=== PATIENT | male | born 1975 | race American Indian/Alaskan Native ===

== ENCOUNTER 2017-05-16 12:56 | Emergency (ER) | payer MEDICAID, OTHER ==
[2017-05-16 13:14] VITALS: TEMP 98.2
[2017-05-16] MEDS ORDERED: Sodium Chloride 0.9% 1,000 ML IV STA (13:28)
--- NOTE | 2017-05-16 13:52 | ED PDOC ---
Arrival/HPI - History of Present Illness Time/Duration: 24 hours Symptom Onset: Gradual Symptom Course: Unchanged Quality: Fullness Severity Level: 6 Activities at Onset: Rest Context: Sitting <Loco Mcnally - Last Filed: 05/16/17 17:22> - General Historian: Patient <Eliz Vasquez - Last Filed: 05/16/17 17:43> - General Chief Complaint: Abdominal Pain Time Seen by Provider: 05/16/17 13:11 - History of Present Illness Narrative History of Present Illness (Text): 05/16/17 13:46 This is a 41 yr. old male with no significant past medical history who comes into the [facility] complaining of stomach pain since last night. The patient describes the pain as having "to pass gas". The patient reports that the pain moves from the four quadrants anteriorly to the mid back. The patient reports taking Mylanta for the discomfort last night, but denies it improving the symptoms. The patient also reports two episodes of vomiting since arriving at the [facility]. The first episode was non-bilious ,non bloody in nature and the second was composed of food and some blood tinged components. The patient reports also reports fever, chills, nausea, and diarrhea. The patient also reports lightheadedness and dizziness in relation to the new onset diarrhea. The patient denies shortness of breath, chest pain or any other complaints. (Loco Mcnally) Past Medical History - Provider Review Nursing Documentation Reviewed: Yes - Infectious Disease Hx of Infectious Diseases: None - Musculoskeletal/Rheumatological Other/Comment: left wrist surgery - Psychiatric Hx Substance Use: No - Anesthesia Hx Anesthesia: No Hx Anesthesia Reactions: No Hx Malignant Hyperthermia: No <Loco Mcnally - Last Filed: 05/16/17 17:22> Family/Social History - Physician Review Nursing Documentation Reviewed: Yes Family/Social History: No Known Family HX Smoking Status: Current Some Days Smoker Hx Alcohol Use: Yes Frequency of alcohol use: Socially Hx Substance Use: No <Loco Mcnally - Last Filed: 05/16/17 17:22> Allergies/Home Meds <Loco Mcnally - Last Filed: 05/16/17 17:22> <Eliz Vasquez - Last Filed: 05/16/17 17:43> Allergies/Adverse Reactions: Allergies No Known Allergies Allergy (Verified 05/16/17 13:13) Home Medications: Home Meds Medication Instructions Recorded Confirmed No Known Home Med 05/16/17 05/16/17 Review of Systems - Physician Review All systems were reviewed & negative as marked: Yes - Review of Systems Constitutional: Normal, Fevers. absent: Fatigue, Weight Change, Night Sweats Eyes: Normal. absent: Vision Changes, Eye Pain ENT: Sore Throat. absent: Normal, Rhinorrhea, Sinus Congestion Respiratory: Normal. absent: SOB, Sputum, Wheezing Cardiovascular: Normal. absent: Chest Pain, Edema, Syncope Gastrointestinal: Abdominal Pain, Diarrhea, Nausea, Vomiting. absent: Constipation Genitourinary Male: Normal. absent: Frequency Musculoskeletal: Normal. absent: Back Pain, Neck Pain Skin: Normal Neurological: Dizziness. absent: Headache, Focal Weakness, Gait Changes, Disequilibrium Endocrine: absent: Polyuria, Polydipsia Psychiatric: Normal <Loco Mcnally - Last Filed: 05/16/17 17:22> Physical Exam Vital Signs Reviewed: Yes Temperature: Afebrile Blood Pressure: Normal Pulse: Tachycardic Respiratory Rate: Normal Appearance: Positive for: Well-Appearing, Non-Toxic, Comfortable Pain Distress: Moderate Mental Status: Positive for: Alert and Oriented X 3 - Systems Exam Head: Present: Atraumatic, Normocephalic Pupils: Present: PERRL Extroacular Muscles: Present: EOMI. No: Gaze Palsy Conjunctiva: Present: Normal. No: Injected Mouth: Present: Moist Mucous Membranes. No: Dry Neck: Present: Normal Range of Motion. No: JVD, Lymphadenopathy Respiratory/Chest: Present: Clear to Auscultation, Good Air Exchange. No: Respiratory Distress, Accessory Muscle Use, Wheezes Cardiovascular: Present: Regular Rate and Rhythm, Normal S1, S2, Tachycardic. No: Murmurs, Bradycardic Abdomen: Present: Tenderness. No: Distention, Peritoneal Signs Back: Present: Normal Inspection Upper Extremity: Present: Normal Inspection. No: Cyanosis, Edema Lower Extremity: Present: Normal Inspection. No: Edema Neurological: Present: CN II-XII Intact, Speech Normal Skin: Present: Dry, Normal Color. No: Warm, Rashes Lymphatic: No: Cervical Adenopathy Psychiatric: Present: Alert, Oriented x 3, Normal Insight <DaliLoco - Last Filed: 05/16/17 17:22> Medical Decision Making - EKG Interpretation Interpreted by ED Physician: Yes Type: 12 lead EKG <Loco Mcnally - Last Filed: 05/16/17 17:22> <Eliz Vasquez - Last Filed: 05/16/17 17:43> ED Course and Treatment: 05/16/17 13:56 The patient came to [facility] complaining of stomach pain since last night. Lab tests were ordered including : cbc w/diff, cmp, mg, and phos. The patient was given Zofran and Toradol for nausea and pain respectively. Patient will be re-evaluated once lab results return. Patient currently tolerating the PO challenge with no complaints. Will re- evaluate afterwards. (Loco Mcnally) 05/16/17 14:08 In agreement with resident note, which includes further HPI details. Patient was seen and evaluated with resident, came up with plan and treatment together. Patient presented with vomiting and diarrhea. Abdomen was soft NT/ND. EKG shows NSR at 86bpm with normal intervals and no ST changes. WBC was mildly elevated but CT negative. On reevaluation, abdomen continues to be soft NT/ND and patient is tolerating po and requesting to go home. Repeat vitals WNL ( Eliz Vasquez) - Lab Interpretations Lab Results: 05/16/17 14:05 05/16/17 14:05 Lab Results 05/16/17 14:05: Sodium 141, Potassium 4.8, Chloride 98, Carbon Dioxide 28, Anion Gap 20, BUN 11, Creatinine 0.9, Est GFR ( Amer) > 60, Est GFR (Non- Af Amer) > 60, Random Glucose 128 H, Calcium 9.9, Phosphorus 2.0 L, Magnesium 1.7, Total Bilirubin 1.1, AST 47, ALT 58 H, Alkaline Phosphatase 86, Total Protein 8.7 H, Albumin 5.2 H, Globulin 3.5, Albumin/Globulin Ratio 1.5, Lipase 81 05/16/17 14:05: WBC 13.1 H, RBC 5.08, Hgb 16.2, Hct 46.4, MCV 91.3, MCH 31.9, MCHC 34.9, RDW 12.5, Plt Count 272, MPV 9.5, Neutrophils % (Manual) 92 H, Band Neutrophils % 3 H, Lymphocytes % (Manual) 2 L, Monocytes % (Manual) 3, Platelet Evaluation Normal - RAD Interpretation Radiology Orders: 05/16/17 13:43 ABDOMEN & PELVIS [ABD & PELVIS IV CONTRAST ONLY] [CT] Stat - Medication Orders Current Medication Orders: Discontinued Medications Famotidine (Pepcid) 20 mg IVP STAT STA Stop: 05/16/17 16:04 Last Admin: 05/16/17 16:24 Dose: 20 mg Sodium Chloride (Sodium Chloride 0.9%) 1,000 mls @ 999 mls/hr IV .Q1H1M STA Stop: 05/16/17 14:28 Last Admin: 05/16/17 13:57 Dose: 999 mls/hr Iohexol (Omnipaque 350 100 Ml) Confirm Administered Dose 350 mg .ROUTE .STK-MED ONE Stop: 05/16/17 15:29 Ketorolac Tromethamine (Toradol) 30 mg IVP STAT STA Stop: 05/16/17 13:45 Last Admin: 05/16/17 13:59 Dose: 30 mg Ondansetron HCl (Zofran Inj) 4 mg IVP STAT STA Stop: 05/16/17 13:27 Last Admin: 05/16/17 13:58 Dose: 4 mg - 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 MD/DO has examined the patient and agrees with the treatment plan. <Loco Mcnally - Last Filed: 05/16/17 17:22> - Scribe Statement The provider has reviewed the documentation as recorded by the Scribe <Eliz Vasquez - Last Filed: 05/16/17 17:43> - Scribe Statement 05/16/2017 Leigha Castellanos Provider Scribe Attestation: All medical record entries made by the Scribe were at my direction and personally dictated by me. I have reviewed the chart and agree that the record accurately reflects my personal performance of the history, physical exam, medical decision making, and the department course for this patient. I have also personally directed, reviewed, and agree with the discharge instructions and disposition. (Eliz Vasquez) Disposition/Present on Arrival - Present on Arrival Any Indicators Present on Arrival: No History of DVT/PE: No History of Uncontrolled Diabetes: No Urinary Catheter: No History of Decub. Ulcer: No History Surgical Site Infection Following: None - Disposition Have Diagnosis and Disposition been Completed?: Yes Disposition Time: 17:00 Patient Plan: Discharge <Loco Mcnally - Last Filed: 05/16/17 17:22> <Eliz Vasquez - Last Filed: 05/16/17 17:43> - Disposition Diagnosis: Abdominal pain Disposition: HOME/ ROUTINE Patient Problems: Current Active Problems Problem Status Onset Abdominal pain Acute Condition: GOOD Discharge Instructions (ExitCare): Abdominal Pain (ED) Print Language: ARMENIAN Additional Instructions: Patient is to F/U with PMD. Patient should return to [facility] if any new symptoms or ones currently present worsen. Referrals: PCP,NO [Primary Care Provider] - Follow up with primary Forms: [employer] (Georgian)
[2017-05-16 14:30] LABS: HEMOGLOBIN 16.2 g/dL (14.0-18.0); MEAN CELL VOLUME 91.3 fl (80.0-105.0); MEAN CORPUSCULAR HEMOGLOBIN 31.9 pg (25.0-35.0); MEAN CORPUSCULAR HGB CONC 34.9 g/dl (31.0-37.0); MEAN PLATELET VOLUME 9.5 fl (7.0-11.0); PLATELET COUNT 272 10^3/uL (120.0-450.0); RBC 5.08 10^6/uL (3.5-6.1); RED CELL DISTRIBUTION WIDTH 12.5 % (11.5-14.5); WHITE BLOOD COUNT 13.1 10^3/ul (4.5-11.0)
[2017-05-16 14:39] LABS: ALB/GLOB RATIO 1.5 (1.1-1.8); ALBUMIN 5.2 g/dL (3.0-4.8); ALT/SGPT 58 U/L (7-56); AST/SGOT 47 U/L (15-59); BLOOD UREA NITROGEN 11 mg/dL (7-21); CALCIUM 9.9 mg/dL (8.4-10.5); GFR AFRICAN-AMERICAN > 60; GFR NON-AFRICAN AMERICAN > 60; LIPASE 81 U/L (23-300); MAGNESIUM 1.7 mg/dL (1.7-2.2)
[2017-05-16 15:14] LABS: BAND 3 % (0-2); LYMPHOCYTE 2 % (22.0-35.0); MONOCYTE 3 % (1.0-6.0); NEUTROPHIL 92 % (50.0-70.0); PLATELET ESTIMATE NORMAL (NORMAL)
[2017-05-16] MEDS ORDERED: Iohexol 350 MG/100 ML VIAL ONE (15:28)
--- NOTE | 2017-05-16 15:52 | CT ---
PROCEDURE: CT Abdomen and Pelvis with contrast HISTORY: r/o diverticulitis COMPARISON: None. TECHNIQUE: Contrast dose: 100 cc of Omni 350 Radiation dose: Total exam DLP = 668 mGy-cm. This CT exam was performed using one or more of the following dose reduction techniques: Automated exposure control, adjustment of the mA and/or kV according to patient size, and/or use of iterative reconstruction technique. FINDINGS: LOWER THORAX: Unremarkable. LIVER: Unremarkable. No gross lesion or ductal dilatation. GALLBLADDER AND BILE DUCTS: Unremarkable. PANCREAS: Unremarkable. No gross lesion or ductal dilatation. SPLEEN: Unremarkable. ADRENALS: Unremarkable. No mass. KIDNEYS AND URETERS: Unremarkable. No hydronephrosis. No solid mass. VASCULATURE: Unremarkable. No aortic aneurysm. BOWEL: Unremarkable. No obstruction. No gross mural thickening. APPENDIX: Normal appendix. PERITONEUM: Unremarkable. No free fluid. No free air. LYMPH NODES: Unremarkable. No enlarged lymph nodes. BLADDER: Unremarkable. REPRODUCTIVE: Unremarkable. BONES: No acute fracture. OTHER FINDINGS: None. IMPRESSION: Unremarkable contrast enhanced CT of the abdomen and pelvis.
--- NOTE | 2017-05-16 15:53 | CARD ---
APPROVED REPORT EKG Measurement Heart [id number] <Conclusion> Normal sinus rhythm Normal ECG
[2017-05-16 20:13] VITALS: RESP 18
[2017-05-16 20:15] VITALS: BP 150/93; PULSE 90; O2SAT 99
== END 2017-05-16 17:30 | disposition home or self-care (01) ==
LOC: MERGE 12:56 → ED 12:56
DX: R10.9 Unspecified abdominal pain (principal)
CPT/HCPCS: 74177; 80053; 83690; 83735; 84100; 85025; 93005; 96374; 96375; 99283; J1885; J2405; J7040; Q9967